=== PATIENT | female | born 1995 | race Caucasian/White ===

== ENCOUNTER 2022-01-09 17:17 | Emergency (ER) | payer OTHER, SELFPAY ==
--- NOTE | ~2022-01-09 | US_ITS ---
US pelvic complete DATE: 01/09/2022 20:09 INDICATION: Right lower quadrant pain, pelvic pain. TECHNIQUE: Real time imaging via transabdominal view COMPARISON: None FINDINGS: The uterus measures 9.2 cm. 4.5 cm AP dimension, 6 cm transverse dimension. The central en dometrial echo complex is not well defined. There is a 10.4 x 11.5 x 9.5 cm multilocular cyst of the right ovary. The left ovary is not visualiz ed. No pelvic mass lesion or abnormal free pelvic fluid collection. IMPRESSION: Multilocular septated cyst of right ovary Reviewed, dictated and finalized at [facility]. Reviewed, dictated and finalized at [facility].
--- NOTE | ~2022-01-09 | CT_ITS ---
EXAMINATION: CT abdomen pelvis w con DATE: 01/09/2022 21:19 INDICATION: Right lower quadrant abdominal pain TECHNIQUE: Computed tomography (CT) of the abdomen and pelvis was performed with 100 CC Omnipaque 350 intravenous contrast. Automated exposure control and iterative reconstruction technique were employe d. Exam dose: 1564.80 mGy-cm total exam DLP. COMPARISON: 01/09/2022 pelvic ultrasound FINDINGS: The lung bases are clear. Heart size is normal. No pericardial or pleural effusion. The liver, gallbladder, bile ducts, spleen, pancreas, pancreatic duct, and adrenal glands and kidneys are unremarkable. Normal caliber of the abdominal aorta. No intraperitoneal or retroperitoneal or pe lvic lymphadenopathy or ascites. There is a large multilocular cystic mass lesion in the anterior pelvic area, centered left of midlin e, which extends above the level of the umbilicus. The mass measures up to 13.6 x 20 cm x 16.5 cm lisa tical dimension. There are some focal areas of mild thickening of the wall. Differential diagnosis in cludes cystadenoma, cystadenocarcinoma. Gynecologic surgical consultation is recommended. The uterus is unremarkable. Degenerative spurring in the lower thoracic spine. No suspicious osteolytic or osteoblastic lesions. IMPRESSION: Complex multilocular largely cystic likely ovarian mass centered left of midline, extend ing into the supraumbilical abdomen. Cystadenoma, cystadenocarcinoma are among the differential diagn ostic considerations. Gynecologic surgical consult is recommended. Reviewed, dictated and finalized at [facility]. Reviewed, dictated and finalized at [facility]. IMPRESSION: Complex multilocular largely cystic likely ovarian mass centered l eft of midline, extending into the supraumbilical abdomen. Cystadenoma, cystade nocarcinoma are among the differential diagnostic considerations. Gynecologic s urgical consult is recommended.
[2022-01-09 17:25] VITALS: BP 143/65; PULSE 59; RESP 20; TEMP 36.3; O2SAT 100
[2022-01-09 17:47] LABS: Basophils Percent Auto 0.3 % (0.2-1.2); Eosinophils Percent Auto 0.1 % (0-4.4); Hematocrit 37.7 % (37.0-47.0); Hemoglobin 10.8 g/dL (12.0-15.0); Immature Granulocyte Absolute 0.05 K/mm3 (0.00-0.031); Immature Granulocyte Percent A 0.5 % (0-0.5); Lymphocytes Absolute Auto 0.98 K/mm3 (0.9-3.2); Lymphocytes Percent Auto 9.2 % (18.3-44.2); Mean Corpuscular HGB Conc 28.6 g/dl (32-36); Mean Corpuscular Hemoglobin 20.6 pg (26-34); Mean Corpuscular Volume 71.9 fl (80-100); Mean Platelet Volume 10.5 fl (7.4-10.4); Monocytes Absolute Auto 0.3 K/mm3 (0.1-0.6); Monocytes Percent Auto 2.9 % (2.6-8.5); Neutrophils Absolute Auto 9.3 K/mm3 (1.3-6.7); Platelet Count Result 479 k/mm3 (150-375); Red Blood Count 5.24 M/mm3 (4.2-5.4); Red Cell Distribution Width 16.3 % (11.5-14.5); White Blood Count 10.7 K/mm3 (4.5-10.0)
[2022-01-09 17:56] LABS: Alanine Aminotransferase 27 U/L (6-35); Albumin Level 4.6 g/dL (3.5-5.1); Alkaline Phosphatase 75 U/L (38-126); Anion Gap 16 mmol/L (8-16); Aspartate Amino Transferase 27 U/L (14-36); Bilirubin,Total 0.4 mg/dL (0.2-1.3); Blood Urea Nitrogen 13 mg/dL (7-17); Calcium 9.2 mg/dL (8.4-10.2); Carbon Dioxide 23 mmol/L (22-30); Chloride 103 mmol/L (98-107); Estimated CRCL calculation 132 ml/min; Estimated Glomerular Filt Rate > 60; Glucose 120 mg/dL (65-110); Lipase 33 U/L (23-300); Potassium 4.1 mmol/L (3.4-5.0); Sodium 142 mmol/L (137-145)
[2022-01-09 18:16] LABS: Hypochromasia 1+ (NORMAL); Platelet Estimate Increased (Adequate)
[2022-01-09 18:17] LABS: Anisocytosis 2+ (NORMAL); Schistocytes None Seen (NORMAL)
[2022-01-09 19:04] LABS: Add Urine Microscopic? YES; Appearance Urine Cloudy (Clear); Bacteria Urine Trace /hpf; Bilirubin Urine Negative (Negative); Blood Urine 1+ (Negative); Color Urine Yellow (Yellow); Glucose Urine UA Negative (Negative); Ketones Urine Trace mg/dL (Negative); Leukocyte Esterase Ur 2+ LEU/UL (Negative); Mucus Urine Heavy /lpf; Nitrate Urine Negative (Negative); Protein Urine Negative (Negative); Specific Grav Ur 1.027 (1.001-1.035); Squamous Epithelial Cell Urine Many /hpf (Few); Urobilinogen Urine Negative mg/dL (<2.0); WBC Urine 21-30 /hpf
--- NOTE | 2022-01-09 19:17 | ED.ABDPAIN ---
HPI - Abdominal Pain General Chief Complaint: Abdominal Pain <Ria Barros PA-C - Last Filed: 01/09/22 22:11> Stated Complaint: RLQ abd and hip pain - hx ovarian cyst <Ria Barros PA-C - Last Filed: 01/09/22 22:11> Time Seen by Provider: 01/09/22 19:07 <Ria Barros PA-C - Last Filed: 01/09/22 22:11> Source: patient <Ria Barros PA-C - Last Filed: 01/09/22 22:11> Mode of arrival: ambulatory <Ria Barros PA-C - Last Filed: 01/09/22 22:11> Limitations: no limitations <Ria Barros PA-C - Last Filed: 01/09/22 22:11> History of Present Illness HPI narrative: This is a 26-year-old female that presents to the emergency department for right lower quadrant pain ongoing today. Reports the pain is sharp and constant in nature. She has a known ovarian cyst on this side. Reports an episode of vomiting earlier today. Denies fever, dysuria, hematuria. <Ria Barros PA-C - Last Filed: 01/09/22 22:11> Related Data Allergies/Adverse Reactions: Allergies Allergy/AdvReac Type Severity Reaction Status Date / Time No Known Allergies Allergy Verified 01/09/22 17:19 <Ria Barros PA-C - Last Filed: 01/09/22 22:11> Review of Systems Review of Systems: CONSTITUTIONAL: Denies fever GASTROINTESTINAL: Reports abdominal pain, nausea, vomiting GENITOURINARY: Denies dysuria or hematuria. <Ria Barros PA-C - Last Filed: 01/09/22 22:11> All systems reviewed & are unremarkable except as noted in HPI and below <Ria Barros PA-C - Last Filed: 01/09/22 22:11> [facility] Surgical History Surgical History: Surgical History (Updated 01/09/22 @ 19:19 by Ria Barros PA-C) History of <Ria Barros PA-C - Last Filed: 01/09/22 22:11> Social History Social History: Social History (Updated 01/09/22 @ 19:19 by Ria Barros PA-C) Smoking status: Never smoker <Ria Barros PA-C - Last Filed: 01/09/22 22:11> Exam Narrative: GENERAL: Well-appearing, well-nourished, and in no acute distress. HEAD: Normocephalic, atraumatic. EYES: EOMI. CHEST: Clear to auscultation. No respiratory distress. No wheezes rales or rhonchi HEART: Regular rate and rhythm. No murmur heard. Normal peripheral pulses. ABDOMEN: Soft, nondistended, normal active bowel sounds. Mild tenderness to palpation in the right lower quadrant, without guarding EXTREMITIES: Normal range of motion. No edema. SKIN: Warm, dry, no rash. NEURO: No focal deficits. Alert and oriented x3. PSYCH: Normal mood and affect <Ria Barros PA-C - Last Filed: 01/09/22 22:11> Course LOG SAWYER/PA Physician Supervision For this patient encounter, I reviewed the LOG SAWYER or PA documentation, treatment plan, and medical decision making <Kurt Hernández MD - Last Filed: 01/09/22 22:17> Vital Signs Vital signs: Vital Signs Temperature 97.3 F L 01/09/22 17:25 Pulse Rate 59 L 01/09/22 17:25 Respiratory Rate 20 01/09/22 17:25 Blood Pressure 143/65 H 01/09/22 17:25 Pulse Oximetry 100 01/09/22 17:25 Oxygen Delivery Room Air 01/09/22 17:25 Temperature 97.3 F L 01/09/22 17:25 Pulse Rate 86 01/09/22 21:28 Respiratory Rate 16 01/09/22 21:28 Blood Pressure 144/74 H 01/09/22 21:28 Pulse Oximetry 98 01/09/22 21:28 Oxygen Delivery Room Air 01/09/22 17:25 <Ria Barros PA-C - Last Filed: 01/09/22 22:11> Vital Signs Temperature 97.3 F L 01/09/22 17:25 Pulse Rate 59 L 01/09/22 17:25 Respiratory Rate 20 01/09/22 17:25 Blood Pressure 143/65 H 01/09/22 17:25 Pulse Oximetry 100 01/09/22 17:25 Oxygen Delivery Room Air 01/09/22 17:25 Temperature 97.3 F L 01/09/22 17:25 Pulse Rate 86 01/09/22 21:28 Respiratory Rate 16 01/09/22 21:28 Blood Pressure 144/74 H 01/09/22 21:28 Pulse Oximetry 98 01/09/22 21:28 Oxygen Delivery Room Air 01/09/22 17:25 <Kurt Hernández MD - Last Filed: 01/09/22 22:17> MDM
[2022-01-09 21:28] VITALS: BP 144/74; PULSE 86; RESP 16; O2SAT 98
[2022-01-09 22:25] VITALS: PULSE 81; RESP 16; O2SAT 98
== END 2022-01-09 22:26 | disposition home or self-care (01) ==
PROVIDERS: Emergency Provider Emergency Medicine
DX: R10.31 Right lower quadrant pain (principal); D39.11 Neoplasm of uncertain behavior of right ovary
CPT/HCPCS: 36415; 74177; 76856; 80053; 81001; 81025; 83690; 85025; 87086; 87088; 96365; 99284; J0131; Q9967